=== PATIENT | female | born 1990 | race Caucasian/White ===

== ENCOUNTER → 2019-08-31 | Outpatient (CLI) | payer BC ==
--- NOTE | 2019-08-31 15:44 | CT ---
EXAMINATION TYPE: CT abdomen pelvis wo con DATE OF EXAM: 08/31/2019 HISTORY: Right femoral hernia per order. Abnormal physical exam with suspected hernia per patient. CT DLP: 1216 mGycm. Automated Exposure Control for Dose Reduction was Utilized. TECHNIQUE: CT scan of the abdomen and pelvis is performed without oral or IV contrast. COMPARISON: NONE FINDINGS: Within the limitations of a non-contrast study, the following observations are made. LUNG BASES: No significant abnormality is appreciated. LIVER/GB: No significant abnormality is appreciated. PANCREAS: No significant abnormality is seen. SPLEEN: No significant abnormality is seen. ADRENALS: No significant abnormality is seen. KIDNEYS: No renal stones or hydronephrosis seen bilaterally. BOWEL: Normal-appearing appendix ascending from base of cecum. No suspicious small or large bowel dil atation. Suboptimal evaluation of bowel without enteric contrast. Moderate wall thickening and mild s urrounding fat stranding at level of terminal ileum. Mild vasa engorgement at this level. GENITAL ORGANS: Slightly retroverted uterus. Ovaries normal in size and the adnexa LYMPH NODES: No greater than 1cm abdominal or pelvic lymph nodes are appreciated. Slightly prominent but subcentimeter bilateral groin lymph nodes. OSSEOUS STRUCTURES: No significant abnormality is seen. OTHER: No suspicious fat or bowel containing inguinal hernias bilaterally. IMPRESSION: No suspicious right-sided hernia including possible femoral or inguinal hernia. Possible acute enteritis centered at the terminal ileum, correlate clinically for irritable bowel disease such as Crohn's disease. Other etiologies not excluded.
== END | disposition home or self-care (01) ==
LOC: EDBD 15:00 → RADCTMAIN 15:12
PROVIDERS: ATTEND Family Medicine
DX: K41.90 Unilateral femoral hernia, without obstruction or gangrene, not specified as recurrent (principal)
CPT/HCPCS: 74176

== ENCOUNTER 2022-04-26 16:32 | Emergency (ER) | payer BC, OTHER ==
[2022-04-26 16:50] VITALS: BP 141/92; PULSE 91; RESP 20; TEMP 98.2
--- NOTE | 2022-04-26 17:09 | XR ---
EXAMINATION TYPE: XR ankle complete RT DATE OF EXAM: 04/26/2022 COMPARISON: NONE HISTORY: Ankle pain TECHNIQUE: 3 views FINDINGS: There is soft tissue swelling over the lateral malleolus. There is acute oblique fracture o f distal shaft of the fibula without displacement. The distal tibia is intact. Ankle mortise is anato alessio. Hindfoot is intact. IMPRESSION: Acute distal fibula nondisplaced fracture.
--- NOTE | 2022-04-26 17:53 | ED ---
Lower Extremity Injury HPI - General Chief Complaint: Extremity Injury, Lower Stated Complaint: RT ankle injury Time Seen by Provider: 04/26/22 17:29 Source: patient Mode of arrival: ambulatory Limitations: no limitations - History of Present Illness Initial Comments: Patient is a 32-year-old female presenting with chief complaint of right ankle pain. Patient was moving her washer down the stairs today when she slipped and fell down approximately 5 stairs. There is an abrasion on the medial aspect of the ankle, and significant pain and swelling on the lateral aspect. No numbness or tingling. No weakness. Patient is having difficulty with range of motion. She is still able to bear weight. - Related Data Allergies Allergy/AdvReac Type Severity Reaction Status Date / Time No Known Allergies Allergy Verified 04/26/22 16:50 Review of Systems ROS Statement: Those systems with pertinent positive or pertinent negative responses have been documented in the HPI. ROS Other: All systems not noted in ROS Statement are negative. Past Medical History Past Medical History: No Reported History History of Any Multi-Drug Resistant Organisms: None Reported Past Surgical History: No Surgical Hx Reported Past Psychological History: No Psychological Hx Reported Smoking Status: Current every day smoker, Vaper Past Alcohol Use History: Occasional Past Drug Use History: None Reported General Exam Limitations: no limitations General appearance: alert, in no apparent distress Head exam: Present: atraumatic, normocephalic, normal inspection Eye exam: Present: normal appearance, PERRL, EOMI. Absent: scleral icterus, conjunctival injection, periorbital swelling Neck exam: Present: normal inspection Right Ankle exam: Present: tenderness, swelling, abrasion. Absent: full ROM Neurovascular tendon exam: Present: no vascular compromise. Absent: pulse deficit Neurological exam: Present: alert, oriented X3, CN II-XII intact Psychiatric exam: Present: normal affect, normal mood Skin exam: Present: warm, dry, normal color, abrasion. Absent: rash Course Vital Signs 04/26/22 16:47 Temperature 98.2 F Pulse Rate 91 Respiratory 20 Rate Blood Pressure 141/92 O2 Sat by Pulse 98 Oximetry Medical Decision Making - Medical Decision Making Patient is a 32-year-old female presenting with chief complaint of right ankle pain. Patient fell down 5 stairs stable moving her washer. There is an abrasion to the medial aspect of the ankle, and significant pain and swelling on the lateral side. X-ray shows nondisplaced distal fibula fracture. Patient is placed in a stirrup splint and provided with crutches, she is instructed to follow-up with orthopedics. Educated on supportive treatment. Follow-up with PCP. Report back to ER with any new or worsening symptoms. Discussed return parameters and answered all questions. Patient conveyed verbal understanding and agreed to the plan. I discussed this case in detail with my attending Dr. Garrido Disposition Clinical Impression: Fracture of fibula Disposition: HOME SELF-CARE Condition: Good Instructions (If sedation given, give patient instructions): Ankle Fracture (ED) Additional Instructions: Follow up with orthopedics. Report back to ER with any new or worsening symptoms. Take Motrin and Tylenol as needed for pain control. Rest, ice, elevate the leg. Utilize crutches, do not remove splint until instructed by orthopedics. Is patient prescribed a controlled substance at d/c from ED?: No Referrals: None,Stated [Primary Care Provider] - 1-2 days Ricardo Tamayo DO [Doctor of Osteopathic Medicine] - 1-2 days Time of Disposition: 17:53
== END 2022-04-26 18:42 | disposition home or self-care (01) ==
LOC: EC 16:32
DX: S82.831A Other fracture of upper and lower end of right fibula, initial encounter for closed fracture (principal); F12.90 Cannabis use, unspecified, uncomplicated; W10.9XXA Fall (on) (from) unspecified stairs and steps, initial encounter
CPT/HCPCS: 29515; 99283